=== PATIENT | female | born 1985 | race Asian ===

== ENCOUNTER 2019-03-30 15:00 | Emergency (ER) | payer MEDICAID, OTHER ==
[~2019-03-30] VITALS: Ht 157.5 cm; Wt 56.8 kg
[2019-03-30 15:14] VITALS: BP 146/85
[2019-03-30] MEDS ORDERED: proparacaine 0.5% ophthalmic drops 15ml EACHEYE ONE (15:20)
[2019-03-30] MEDS ORDERED: ERYT1OIN6 RIGHTEYE (16:17)
[2019-03-30] MEDS ORDERED: TETanus/Pertussis (Acell)/Diphther VAC/PF (Tdap-Adult) 0.5ml syringe IMVAC ONE (16:25)
[2019-03-30] MEDS ORDERED: HYDR-3965 PO (16:58)
== END 2019-03-30 17:21 | disposition home or self-care (01) ==
LOC: ER 15:00
DX: S05.01XA Injury of conjunctiva and corneal abrasion without foreign body, right eye, initial encounter (principal); X58.XXXA Exposure to other specified factors, initial encounter; Y93.89 Activity, other specified; Y92.89 Other specified places as the place of occurrence of the external cause; Y99.9 Unspecified external cause status
CPT/HCPCS: 90471; 90715; 99283